=== PATIENT | male | born 1940 | race Native Hawaiian/Other Pacific Islander ===

== ENCOUNTER → 2017-05-26 | Outpatient (CLI) | payer MEDICARE ==
--- NOTE | 2017-05-26 19:19 | MR ---
EXAMINATION TYPE: MR brain wo con DATE OF EXAM: 05/26/2017 COMPARISON: NONE HISTORY: Dizziness/giddiness Standard multiplanar, multisequence MRI departmental protocol Multiplanar, multisequence images of the brain were acquired. Diffusion weighted imaging was performe d. FINDINGS: There is mild cerebral cortical atrophy. There is no mass effect nor midline shift. There i s no sign of intracranial hemorrhage. Cerebellum is intact. There are tiny foci of increased signal i n the white matter around the lateral ventricles. These measure less than 5 mm and total numbers less than 10. The brain stem appears normal. Sella turcica appears normal. IMPRESSION: Mild atrophy. There are mild small white matter signal changes around the lateral ventricles that are nonspecific in probably relates to small vessel ischemia. No evidence of a cerebellar infarct.
== END | disposition home or self-care (01) ==
LOC: RADMRIMAIN 18:19
PROVIDERS: ATTEND Family Medicine
DX: G31.9 Degenerative disease of nervous system, unspecified (principal); R90.82 White matter disease, unspecified
CPT/HCPCS: 70551

== ENCOUNTER → 2017-06-15 | Outpatient (CLI) | payer MEDICARE | END | disposition home or self-care (01) | LOC: LABWHC1 14:38 | PROVIDERS: ATTEND Psychiatry & Neurology Neurology | DX: G40.909 Epilepsy, unspecified, not intractable, without status epilepticus (principal) | CPT/HCPCS: 36415; 80185 ==

== ENCOUNTER 2018-08-25 11:26 | Emergency (ER) | payer MEDICARE ==
--- NOTE | 2018-08-25 12:06 | ED ---
General Adult HPI - General Chief complaint: Extremity Injury, Lower Stated complaint: LEFT SIDE/GROIN PAIN Time Seen by Provider: 08/25/18 11:56 Source: patient, RN notes reviewed, old records reviewed Mode of arrival: ambulatory Limitations: no limitations - History of Present Illness Initial comments: 78-year-old male patient past medical history of hyperlipidemia presents to ED with approximately 1 week of painful mass in left groin region. Patient denies having any known history of hernias. Patient states that he is urinating at baseline. Patient denies any other complaints including chest pain, abdominal pain, shortness of breath, nausea vomiting or diarrhea. Systemic: Pt denies fatigue, myalgia, fever/chills, rash. Pt denies weakness, night sweats, weight loss. Neuro: Pt denies headache, visual disturbances, syncope or pre-syncope. HEENT: Pt denies ocular discharge or irritation, otalgia, rhinorrhea, pharyngitis or notable lymphadenopathy. Cardiopulmonary: Pt denies chest pain, SOB, heart palpitations, dyspnea on exertion. Abdominal/GI: Pt denies abdominal pain, n/v/d. : Pt denies dysuria, burning w/ urination, frequency/urgency. Denies new onset urinary or bowel incontinence. MSK: Pt denies myalgia, loss of strength or function in extremities. Neuro: Pt denies new onset weakness, paresthesias. - Related Data Home Medications Medication Instructions Recorded Confirmed Phenytoin Sodium Extended 200 mg PO BID 05/15/17 08/25/18 [Dilantin] Aspirin EC [Ecotrin Low Dose] 81 mg PO HS 08/25/18 08/25/18 Allergies Allergy/AdvReac Type Severity Reaction Status Date / Time No Known Allergies Allergy Verified 08/25/18 12:33 Review of Systems ROS Statement: Those systems with pertinent positive or pertinent negative responses have been documented in the HPI. ROS Other: All systems not noted in ROS Statement are negative. Past Medical History Past Medical History: Hyperlipidemia, Hypertension, Seizure Disorder History of Any Multi-Drug Resistant Organisms: None Reported Past Surgical History: No Surgical Hx Reported Past Psychological History: No Psychological Hx Reported Smoking Status: Never smoker Past Alcohol Use History: None Reported Past Drug Use History: None Reported General Exam - General Exam Comments Initial Comments: Constitutional: NAD, AOX3, Pt has pleasant affect. HEENT: NC/AT, trachea midline, neck supple, no lymphadenopathy. Posterior pharynx non erythematous, without exudates. External ears appear normal, without discharge. Mucous membranes moist. Eyes PERRLA, EOM intact. There is no scleral icterus. No pallor noted. Cardiopulmonary: RRR, no murmurs, rubs or gallops, no JVD noted. Lungs CTAB in anterior and posterior lucia. No peripheral edema. Abdominal exam: Abdomen soft and non-distended. Abdomen non-tender to palpation in all 4 quadrants, no masses. Bowel sounds active in LLQ. No hepatosplenomegaly. No ecchymosis Neuro: CN II-XII grossly intact. No nuchal rigidity. MSK: No posterior calf tenderness bilaterally, homans sign negative bilaterally. Posterior tibialis and radial pulse +2 bilaterally and equal. Sensation intact in upper and lower extremities. Full active ROM in upper and lower extremities, 5/5 stregnth. Gu: Mass in left inguinal region noted, testicles nontender to palpation bilaterally. No masses in scrotum. Cremasteric reflex intact. No lesions or ulcerations noted. Limitations: no limitations Course Vital Signs 08/25/18 08/25/18 08/25/18 11:27 15:16 17:30 Temperature 98.5 F 97.1 F L Pulse Rate 65 60 76 Respiratory 18 16 15 Rate Blood Pressure 154/74 140/79 125/91 O2 Sat by Pulse 96 94 L 99 Oximetry Medical Decision Making - Medical Decision Making 78-year-old male patient past medical history of hyperlipidemia presents to ED with approximately 1 week of painful mass in left groin region. Patient denies having any known history of hernias. Patient states that he is urinating at baseline. Patient denies any other complaints. Patient vital signs stable, afebrile. Physical exam displayed: Hernia in left inguinal region noted - irreducible, testicles nontender to palpation bilaterally. No masses in scrotum. Cremasteric reflex intact. No lesions or ulcerations noted. UA was negative. CBC CMP non-impressive. Ultrasound of scrotum revealed a benign appearing 1 cm right epididymal cyst. Small bilateral hydroceles. Left groin ultrasound revealed an inguinal hernia increasing size with this Valsalva maneuver. CT of abdomen and pelvis revealed fat filled left inguinal hernia, large bowel does not enter hernia. Enhancing prostate gland suspicious for possible carcinoma. Infrarenal abdominal aortic aneurysm. These findings were explained to patient at [facility]. Patient verbalized understanding. Patient to follow up with surgeon for hernia. Patient to follow-up with PCP tomorrow for other findings previously described. Patient to return to ED if descends symptoms develop or if condition worsens in any way. Case discussed with Dr. Bridges. - Lab Data Result diagrams: 08/25/18 15:31 08/25/18 15:31 Lab Results 08/25/18 08/25/18 08/25/18 Range/Units 12:10 15:31 15:31 WBC 5.4 (3.8-10.6) k/uL RBC 5.20 (4.30-5.90) m/uL Hgb 16.1 (13.0-17.5) gm/dL Hct 49.0 (39.0-53.0) % MCV 94.2 (80.0-100.0) fL MCH 31.0 (25.0-35.0) pg MCHC 32.9 (31.0-37.0) g/dL RDW 13.9 (11.5-15.5) % Plt Count 164 (150-450) k/uL Neutrophils % 55 % Lymphocytes % 29 % Monocytes % 8 % Eosinophils % 3 % Basophils % 1 % Neutrophils # 3.0 (1.3-7.7) k/uL Lymphocytes # 1.6 (1.0-4.8) k/uL Monocytes # 0.5 (0-1.0) k/uL Eosinophils # 0.1 (0-0.7) k/uL Basophils # 0.1 (0-0.2) k/uL Sodium 139 (137-145) mmol/L Potassium 4.9 (3.5-5.1) mmol/L Chloride 104 (98-107) mmol/L Carbon Dioxide 24 (22-30) mmol/L Anion Gap 11 mmol/L BUN 8 L (9-20) mg/dL Creatinine 0.78 (0.66-1.25) mg/dL Est GFR (CKD-EPI)AfAm >90 (>60 ml/min/1.73 sqM) Est GFR (CKD-EPI)NonAf 86 (>60 ml/min/1.73 sqM) Glucose 97 (74-99) mg/dL Calcium 9.7 (8.4-10.2) mg/dL Total Bilirubin 0.5 (0.2-1.3) mg/dL AST 35 (17-59) U/L ALT 47 (21-72) U/L Alkaline Phosphatase 118 (38-126) U/L Total Protein 8.2 (6.3-8.2) g/dL Albumin 4.5 (3.5-5.0) g/dL Urine Color Colorless Urine Appearance Clear (Clear) Urine pH 6.5 (5.0-8.0) Ur Specific [place] 1.002 (1.001-1.035) Urine Protein Negative (Negative) Urine Glucose (UA) Negative (Negative) Urine Ketones Negative (Negative) Urine Blood Negative (Negative) Urine Nitrite Negative (Negative) Urine Bilirubin Negative (Negative) Urine Urobilinogen <2.0 (<2.0) mg/dL Ur Leukocyte Esterase Negative (Negative) Disposition Clinical Impression: Inguinal hernia Disposition: HOME SELF-CARE Condition: Stable Additional Instructions: Patient to adhere to previously discussed treatment plan and will take medication(s) as directed. Patient to follow up with PCP in 1-2 days. Patient to return to ED if symptoms do not improve. Please call Dr. Rogers tomorrow. Please follow up with PCP tomorrow for follow up of prostate and aorta findings on CT. Please return to ED if new s/sx develop or if condition worsens in anyway. Is patient prescribed a controlled substance at d/c from ED?: No Referrals: Merced Flores MD [Primary Care Provider] - 1-2 days
[2018-08-25 12:48] LABS: Appearance,Urine Clear (Clear); Bilirubin,Urine Negative (Negative); Blood,Urine Negative (Negative); Color,Urine Colorless; Glucose,Urine (UA) Negative (Negative); Ketones,Urine Negative (Negative); Leukocyte Esterase,Urine Negative (Negative); Nitrite,Urine Negative (Negative); PH, Urine 6.5 (5.0-8.0); Protein,Urine Negative (Negative); Specific Gravity,Urine 1.002 (1.001-1.035); Urobilinogen,Urine <2.0 mg/dL (<2.0)
--- NOTE | 2018-08-25 12:59 | US ---
EXAMINATION TYPE: US groin LT DATE OF EXAM: 08/25/2018 COMPARISON: NONE CLINICAL HISTORY: Pain. palpable area within left groin for 1 week, no known injury Obvious tongue like projection seen within left groin that appears compatible with hernia, no perista lsing seen within, movement of area was noted with inspiration and obvious bulging noted with valsalv a. IMPRESSION: Inguinal hernia identified on the left increasing in size with Valsalva maneuver.
--- NOTE | 2018-08-25 13:00 | US ---
EXAMINATION TYPE: US scrotum with doppler. Grayscale and color Doppler Duplex imaging performed of t he scrotum. DATE OF EXAM: 08/25/2018 COMPARISON: NONE CLINICAL HISTORY: Pain. palpable in left groin only, no scrotal complaints EXAM MEASUREMENTS: TESTICLES: Right Testicle: 4.0 x 2.2 x 2.0 cm Left Testicle: 3.5 x 2.3 x 1.6 cm EPIDIDYMIS HEAD: Right Epididymis: 1.2 cm, probable 1.0cm epididymal cyst seen Left Epididymis: 1.1 cm Doppler performed to assess for testicular vascularity; good bilateral color flow and waveforms are s een. There is no evidence of testicular torsion. Presence of hydroceles: mild bilaterally Presence of varicoceles: no IMPRESSION: 1. Benign-appearing probable 1.0 cm right epididymal cyst. 2. Small bilateral hydroceles.
[2018-08-25] MEDS ORDERED: SODIUM CHLORIDE 0.9% 1,000 ML IV STA (15:04)
[2018-08-25 15:17] VITALS: TEMP 97.1
[2018-08-25 16:31] LABS: ALT 47 U/L (21-72); AST 35 U/L (17-59); Albumin 4.5 g/dL (3.5-5.0); Alkaline Phosphatase 118 U/L (38-126); Anion Gap 11 mmol/L; Blood Urea Nitrogen 8 mg/dL (9-20); Calcium 9.7 mg/dL (8.4-10.2); Carbon Dioxide 24 mmol/L (22-30); Chloride 104 mmol/L (98-107); Glucose 97 mg/dL (74-99); Potassium 4.9 mmol/L (3.5-5.1); Sodium 139 mmol/L (137-145); Total Bilirubin 0.5 mg/dL (0.2-1.3); Total Protein 8.2 g/dL (6.3-8.2)
[2018-08-25 16:37] LABS: Basophils # (A) 0.1 k/uL (0-0.2); Basophils % (A) 1 %; Eosinophils # (A) 0.1 k/uL (0-0.7); Eosinophils % (A) 3 %; HGB 16.1 gm/dL (13.0-17.5); Lymphocytes # (A) 1.6 k/uL (1.0-4.8); Lymphocytes % (A) 29 %; MCHC 32.9 g/dL (31.0-37.0); MCV 94.2 fL (80.0-100.0); Mean Platelet Volume 10.5; Monocytes # (A) 0.5 k/uL (0-1.0); Monocytes % (A) 8 %; Neutrophils % (A) 55 %; Platelet Count 164 k/uL (150-450); RDW 13.9 % (11.5-15.5); WBC 5.4 k/uL (3.8-10.6)
--- NOTE | 2018-08-25 17:28 | CT ---
EXAMINATION TYPE: CT abdomen pelvis w con DATE OF EXAM: 08/25/2018 COMPARISON: Groin and scrotal ultrasound of the same date HISTORY: Lower abdominal pain CT DLP: 829.9 mGycm Automated exposure control for dose reduction was used. TECHNIQUE: Helical acquisition of images was performed from the lung bases through the pelvis. CONTRAST: Performed without Oral Contrast and with IV Contrast, patient injected with 100 mL of Isovue 300. FINDINGS: LUNG BASES: Right hemidiaphragm elevation, mild paraseptal emphysematous change, bibasilar atelectasi s, leftward mediastinal shift secondary to the right hemidiaphragm elevation, and multifocal pleural parenchymal scarring are seen at the lung bases. Very small hiatal hernia is also noted. LIVER/GB: Hepatic parenchyma is diffusely hypoattenuated in comparison to that of the spleen, most co mmonly seen in hepatic steatosis. This finding limits evaluation for hepatic masses. No gross evidenc e of hepatic mass is seen. No intrahepatic biliary ductal dilatation. Gallbladder surgically absent. PANCREAS: No significant abnormality is seen. SPLEEN: No significant abnormality is seen. ADRENALS: No significant abnormality is seen. KIDNEYS: There are 2 small to accurately characterize left renal lesions that are all subcentimeter. Remainder the kidneys enhance symmetrically. No hydronephrosis. FREE AIR: No free air is visualized. ADENOPATHY: No greater than 1 cm short axis lymph nodes are visualized within the abdomen or pelvis. REPRODUCTIVE ORGANS: Prostate gland is diffusely heterogenous with central zone calcifications and ar eas of hyperemia. Correlation with PSA is recommended. URINARY BLADDER: No significant abnormality is seen. OSSEOUS STRUCTURES: There is a nonspecific sclerotic focus within the right iliac bone entering 1 cm . Multilevel degenerative changes of the spine are noted. There is a nonspecific sclerotic lesion of the transverse process of L5 on the left measuring 1 cm. Other sclerotic foci are seen within the rig ht acetabulum and sacrum such as on image 82 and 71 respectively. BOWEL: No significant abnormality is seen. OTHER: There is a fusiform infrarenal abdominal aortic aneurysm measuring 3.2 x 3.4 cm. Severe calcif ic and noncalcific atheromatous plaquing is seen of the abdominal aorta and its branches. There is no extent into the common iliac vasculature. As seen on the left groin ultrasound of the same date there is a left inguinal fat filled hernia. Lar ge bowel is low-lying along the hernia defect but does not extend into the hernia defect. Right ingui nal canal is patulous. IMPRESSION: 1. CONFIRMATION OF A FAT FILLED LEFT INGUINAL HERNIA. LARGE BOWEL BUT THE DEFECT BUT DOES NOT ENTER T HE LEFT INGUINAL HERNIA. 2. HETEROGENOUS AND MULTIFOCAL ARTERIALLY ENHANCING PROSTATE GLAND SUSPICIOUS FOR PROSTATE CARCINOMA. CORRELATE WITH PSA. ADDITIONALLY THERE ARE INDETERMINATE SCLEROTIC OSSEOUS FOCI OF THE RIGHT ACETABU LUM, RIGHT ILIAC BONE, SACRUM, AND LEFT TRANSVERSE PROCESS OF L5. BONE SCAN IS RECOMMENDED ON A NONEM ERGENT BASIS TO EVALUATE FOR ABNORMAL UPTAKE AND POSSIBLE METASTASIS. 3. INFRARENAL ABDOMINAL AORTIC ANEURYSM. 4. OTHER INCIDENTAL FINDINGS DESCRIBED ABOVE.
--- NOTE | 2018-08-25 18:56 | ED ---
Medical Decision Making - Medical Decision Making Pt referred to vascular surgeon Dr. Almaraz for abdominal aneurysm. To call tomorrow. - Lab Data Result diagrams: 08/25/18 15:31 08/25/18 15:31 Lab Results 08/25/18 08/25/18 08/25/18 Range/Units 12:10 15:31 15:31 WBC 5.4 (3.8-10.6) k/uL RBC 5.20 (4.30-5.90) m/uL Hgb 16.1 (13.0-17.5) gm/dL Hct 49.0 (39.0-53.0) % MCV 94.2 (80.0-100.0) fL MCH 31.0 (25.0-35.0) pg MCHC 32.9 (31.0-37.0) g/dL RDW 13.9 (11.5-15.5) % Plt Count 164 (150-450) k/uL Neutrophils % 55 % Lymphocytes % 29 % Monocytes % 8 % Eosinophils % 3 % Basophils % 1 % Neutrophils # 3.0 (1.3-7.7) k/uL Lymphocytes # 1.6 (1.0-4.8) k/uL Monocytes # 0.5 (0-1.0) k/uL Eosinophils # 0.1 (0-0.7) k/uL Basophils # 0.1 (0-0.2) k/uL Sodium 139 (137-145) mmol/L Potassium 4.9 (3.5-5.1) mmol/L Chloride 104 (98-107) mmol/L Carbon Dioxide 24 (22-30) mmol/L Anion Gap 11 mmol/L BUN 8 L (9-20) mg/dL Creatinine 0.78 (0.66-1.25) mg/dL Est GFR (CKD-EPI)AfAm >90 (>60 ml/min/1.73 sqM) Est GFR (CKD-EPI)NonAf 86 (>60 ml/min/1.73 sqM) Glucose 97 (74-99) mg/dL Calcium 9.7 (8.4-10.2) mg/dL Total Bilirubin 0.5 (0.2-1.3) mg/dL AST 35 (17-59) U/L ALT 47 (21-72) U/L Alkaline Phosphatase 118 (38-126) U/L Total Protein 8.2 (6.3-8.2) g/dL Albumin 4.5 (3.5-5.0) g/dL Urine Color Colorless Urine Appearance Clear (Clear) Urine pH 6.5 (5.0-8.0) Ur Specific [place] 1.002 (1.001-1.035) Urine Protein Negative (Negative) Urine Glucose (UA) Negative (Negative) Urine Ketones Negative (Negative) Urine Blood Negative (Negative) Urine Nitrite Negative (Negative) Urine Bilirubin Negative (Negative) Urine Urobilinogen <2.0 (<2.0) mg/dL Ur Leukocyte Esterase Negative (Negative) Disposition Clinical Impression: Inguinal hernia Disposition: HOME SELF-CARE Condition: Stable Additional Instructions: Patient to adhere to previously discussed treatment plan and will take medication(s) as directed. Patient to follow up with PCP in 1-2 days. Patient to return to ED if symptoms do not improve. Please call Dr. Rogers tomorrow. Please follow up with PCP tomorrow for follow up of prostate and aorta findings on CT. Please return to ED if new s/sx develop or if condition worsens in anyway. Is patient prescribed a controlled substance at d/c from ED?: No Referrals: Merced Floers MD [Primary Care Provider] - 1-2 days Candelario Almaraz MD [STAFF PHYSICIAN] - 1-2 days Zaira Rogers DO [Doctor of Osteopathic Medicine] - 1-2 days
[2018-08-25 18:57] VITALS: BP 144/73; PULSE 75; RESP 16
== END 2018-08-25 19:00 | disposition home or self-care (01) ==
LOC: EC 11:26
DX: K40.90 Unilateral inguinal hernia, without obstruction or gangrene, not specified as recurrent (principal); N50.3 Cyst of epididymis; N43.3 Hydrocele, unspecified; I71.4 Abdominal aortic aneurysm, without rupture; I10 Essential (primary) hypertension; G40.909 Epilepsy, unspecified, not intractable, without status epilepticus; Z79.82 Long term (current) use of aspirin; Z79.899 Other long term (current) drug therapy; Z86.39 Personal history of other endocrine, nutritional and metabolic disease
CPT/HCPCS: 36415; 80053; 85025; 81003; 93975; 76870; 76882; 74177; 99284; 96360; Q9967

== ENCOUNTER → 2018-10-30 | Outpatient (CLI) | payer MEDICARE ==
--- NOTE | 2018-10-31 22:32 | BD ---
EXAMINATION TYPE: Axial Bone Density DATE OF EXAM: 10/30/2018 COMPARISON: NONE CLINICAL HISTORY: disorder of bone Height: 5'4 Weight: 153 FRAX RISK QUESTIONS: Secondary Osteoporosis: RISK FACTORS HISTORY OF: MEDICATIONS: Additional Medications: epilepsy, Additional History: EXAM MEASUREMENTS: Bone mineral densitometry was performed using the LUXA System. Bone mineral density as measured about the Lumbar spine is: ----- L1-L4(G/cm2): 1.024 T Score Values are as follows: ----- L2: -1.4 ----- L3: -0.6 ----- L4: -1.3 ----- L1-L4: -1.3 Bone mineral density about the R hip (g/cm2): 0.990 Bone mineral density about the L hip (g/cm2): 0.916 T Score values are as follows: -----R Neck: -0.3 -----L Neck: -0.9 -----R Total: 0.2 -----L Total: 0.0 IMPRESSION: Osteopenia (T Score between -2.5 and -1). There is slightly increased risk of fracture and the patient may be considered for treatment. Re-Screen 2-5 years. NOTE: T-SCORE=SD OF THE YOUNG ADULT MEAN.
== END | disposition home or self-care (01) ==
LOC: RADBDWWP 12:56
PROVIDERS: ATTEND Family Medicine
DX: M85.80 Other specified disorders of bone density and structure, unspecified site (principal)
CPT/HCPCS: 77080

== ENCOUNTER → 2021-06-18 | Outpatient (CLI) | payer MEDICARE ==
--- NOTE | 2021-06-18 07:59 | US ---
EXAMINATION TYPE: US abdomen complete DATE OF EXAM: 06/18/2021 COMPARISON: CT abdomen and pelvis August 25, 2018 CLINICAL HISTORY: I71.3 Abdominal aortic aneurysm. Pain. EXAM MEASUREMENTS: Liver Length: 13.4 cm Gallbladder Wall: Surgically absent CBD: 0.3 cm Spleen: 9.5 cm Right Kidney: 9.7 x 5.3 x 5.2 cm Left Kidney: 10.1 x 4.8 x 4.6 cm Excessive overlying bowel gas, technically difficult, limited study Pancreas: Obscured by bowel gas Liver: limited visualization, one acoustic window intercostally, limited views appear wnl Gallbladder: Surgically absent Evidence for sonographic Savage's sign: No CBD: limited views Spleen: limited visualization Right Kidney: wnl Left Kidney: cyst seen measuring 0.5 x 0.5 x 0.4cm Upper IVC: wnl Abd Aorta: AAA seen measuring 3.2 x 3.2 x 3.2cm Focal aneurysm of the mid to distal abdominal aorta measures up to 3.2 cm over roughly 4 cm length wi thout significant change from 2019 CT where I get 3.3 cm. No common iliac artery extension. Visualized liver is heterogeneously hyperechoic consistent with diffuse fatty infiltration and/or und erlying hepatocellular disease. Suboptimal evaluation of pancreas on images saved. Poor visualization of common bile duct. No intrahepatic biliary dilatation noted. Incidental subcentimeter thin-walled cysts marked by the technologist left kidney. Gallbladder surgically absent. IMPRESSION: Stable focal AAA measuring up to 3.2 cm on ultrasound.
== END | disposition home or self-care (01) ==
LOC: RADUSWWP 06:46
PROVIDERS: ATTEND Family Medicine
DX: I71.4 Abdominal aortic aneurysm, without rupture (principal)
CPT/HCPCS: 76700

== ENCOUNTER → 2021-12-17 | Outpatient (CLI) | payer MEDICARE ==
--- NOTE | 2021-12-17 09:59 | US ---
EXAMINATION TYPE: US abdomen complete DATE OF EXAM: 12/17/2021 COMPARISON: CLINICAL HISTORY: I71.4 Abdominal aortic aneurysm, without rupture. Hx AAA, GB removed. EXAM MEASUREMENTS: Liver Length: 13.3 cm Spleen: 7.9 cm Right Kidney: 9.4 x 5.6 x 4.4 cm Left Kidney: 9.8 x 4.4 x 5.6 cm Very limited exam due to bowel gas Pancreas: Echogenic in appearance, limited visualization of head and tail. Liver: Limited visualization. Left lobe cyst = 0.8 x 0.6 x 0.5 cm Gallbladder: Surgically absent Evidence for sonographic Savage's sign: neg CBD: wnl Spleen: Obscured by overlying bowel gas Right Kidney: No hydronephrosis or masses seen Left Kidney: No hydronephrosis or masses seen Upper IVC: Limited visualization Abd Aorta: Limited visualization of proximal Aorta. Distal AAA - 4.1 x 3.3 x 3.0 cm IMPRESSION: 1. Abdominal aortic aneurysm with a transverse dimension of 4.1 cm. 2. Small Hepatic cyst left lobe liver
== END | disposition home or self-care (01) ==
LOC: RADUSWWP 07:18
PROVIDERS: ATTEND Family Medicine
DX: I71.4 Abdominal aortic aneurysm, without rupture (principal); K76.0 Fatty (change of) liver, not elsewhere classified
CPT/HCPCS: 76700